=== PATIENT | female | born 2000 | race Caucasian/White ===

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

== ENCOUNTER → 2018-03-14 17:37 | Outpatient (CLI) | payer OTHER, SELFPAY ==
[2018-03-14 17:39] LABS: Adenovirus,PCR Not Detected (NotDetected); Bordetella Pertussis Not Detected (NotDetected); Chlamydophila Pneumoniae, PCR Not Detected (NotDetected); Coronavirus 229E Not Detected (NotDetected); Coronavirus NL63 Not Detected (NotDetected); Coronavirus OC43 Not Detected (NotDetected); Coronovirus HKU1,PCR Not Detected (NotDetected); Human Metapneumovirus Not Detected (NotDetected); Influenza A, PCR Not Detected (NotDetected); Influenza AH1, 2009 Not Detected (NotDetected); Influenza AH1, PCR Not Detected (NotDetected); Influenza AH3,PCR Not Detected (NotDetected); Influenza B, PCR Not Detected (NotDetected); Mycoplasma Pneumoniae, PCR Not Detected (NotDetected); Parainfluenza 1, PCR Not Detected (NotDetected); Parainfluenza 2, PCR Not Detected (NotDetected); Parainfluenza 3, PCR Not Detected (NotDetected); Parainfluenza 4, PCR Not Detected (NotDetected); Rhinovirus/Enterovirus Not Detected (NotDetected)
[2018-03-14 19:08] LABS: Respiratory Syncytial Virus Detected (NotDetected)
== END ==
PROVIDERS: Visit Provider Physician Assistant
DX: R05 Cough (principal); R09.89 Other specified symptoms and signs involving the circulatory and respiratory systems
CPT/HCPCS: 87486; 87581; 87633; 87798

== ENCOUNTER 2019-09-18 12:36 | Emergency (ER) | payer OTHER, SELFPAY ==
[2019-09-18 12:41] VITALS: BP 124/81; PULSE 66; RESP 16; TEMP 36.6; O2SAT 97; BMI 27.2
--- NOTE | 2019-09-18 12:46 | XR_ITS ---
PROCEDURE: XR FOOT LT MIN 3V CLINICAL INDICATION: injury Posttraumatic pain COMPARISON: No exams were available for comparison FINDINGS: No fracture or dislocation. No lytic or blastic change. There is normal mineralization. The joint spaces are well-preserved. No significant degenerative/arthritic changes. No erosive changes evident. Other findings:None. IMPRESSION: No acute findings. Dictated by: Armando Orosco MD 09/18/2019 13:09 Electronically signed by Armando Orosco MD in [place] 09/18/2019 13:11
--- NOTE | 2019-09-18 12:55 | [facility].EDGENADL ---
ED Disposition Clinical Impression: Wound infection Laceration of left foot Qualifiers: Encounter type: initial encounter Qualified Code(s): S91.312A - Laceration without foreign body, left foot, initial encounter Disposition: Home, Self-Care Condition on Discharge: Good Instructions: DI for Wound Infection Additional Instructions: Clean the wound between your toes daily with soap and water, applied Neosporin ointment and bandage/sergey tape. Elevate your foot as often as possible. Crutches as needed. Keflex as prescribed. Ibuprofen for pain. Return to the emergency room if increasing pain, swelling, redness, red streaks, fever, or pus drainage. Prescriptions: cephALEXin [Keflex 500mg Cap] 500 mg PO QID #40 cap Transmission Status: Received by [facility] Referrals: Maci Vargas APRN [Primary Care Provider] - - Critical Care Critical Care Time: No Attestation: On 09/18/19, the high probability of a clinically significant, sudden or life threatening deterioration of the following system(s) required my full and direct attention, intervention and personal management. The time I documented below is in addition to time spent performing reported procedures but includes the following listed in this critical care notation. Medical Decision Making - [place] Inquiry Pt receiving controlled substance: No Vital Signs: 09/18/19 12:41 Temperature 97.8 F Temperature Source Oral Pulse Rate [Left Radial] 66 Respiratory Rate 16 Blood Pressure [Right Arm] 124/81 Blood Pressure Mean [Right Arm] 95 Blood Pressure Position [Right Arm] Sitting 02 Sat by Pulse Oximetry 97 Oxygen Delivery Method Room Air Orders (Tests/Meds): ED MEDICATIONS Discontinued Medications Generic Name Dose Route Start Last Admin Trade Name Devan PRN Reason Stop Dose Admin Ceftriaxone Sodium 1 gm 09/18/19 13:03 09/18/19 13:15 Rocephin 1gm Vial IM 09/18/19 13:04 1 gm ONCE ONE Administration Protocol Lidocaine HCl 0 ml 09/18/19 13:03 09/18/19 13:16 Lidocaine 1% 10ml Mdv IM 09/18/19 13:04 2 ml ONCE ONE Administration - Radiology Data #1 Image(s): Foot/Toes Image Reviewed: Yes I reviewed the patient's radiology image, Yes I have reviewed radiologist's interpretation Preliminary Findings: Normal/NAD General Adult HPI - General Chief complaint: PAIN Stated complaint: AO 6/13 fell injury to left foot Time Seen by Provider: 09/18/19 12:55 Mode of Arrival: Ambulatory Limitations: No Limitations Description of Symptoms (Recalled from ER Triage Doc. by RN): to ed per pvt car with c/o lateral lt foot pain pt states wednesday stepped on a rock I think I may have broke it pt states limitied weight bearing lt . - History of Present Illness HPI narrative: States that on Wednesday, 2 days ago, she was getting out of a kayak when she hit her foot on a rock which struck her between her fourth and fifth toes. She said initially it did not hurt but yesterday began getting swollen and painful. No fever. She says she had no bleeding at the time, but has a skin injury between her toes. Last tetanus immunization was in June. No fever. - Related Data Previous Rx's Medication Instructions Recorded Fluticasone Propionate [Flonase 1 spr NS DAILY #1 bottle 06/05/19 50mcg nasal spray 16gm] cephALEXin [Keflex 500mg Cap] 500 mg PO QID #40 cap 09/18/19 Allergies Allergy/AdvReac Type Severity Reaction Status Date / Time No Known Allergies Allergy Verified 01/05/18 15:09 [facility] History - Hepatitis A Screen Drug use history?: No High risk sexual behaviors?: No History of sexually transmitted infection?: No Currently employed?: No Childcare worker?: No Do you have indoor plumbing?: Yes Do you have electricity?: Yes Attestation statement:: This patient has been screened for Hepatitis A risk factors. I have reviewed the patient's past medical history: Yes Medical History: Denies::
[2019-09-18 13:28] VITALS: BP 110/74; PULSE 68; RESP 16; TEMP 36.6; O2SAT 98
--- NOTE | 2019-09-18 13:29 | PC.NURSE ---
lt foot cleaned and sergey taped 4th and 5th toes
== END 2019-09-18 13:30 | disposition home or self-care (01) ==
PROVIDERS: Emergency Provider Emergency Medicine; PCP Nurse Practitioner Family
DX: S91.312A Laceration without foreign body, left foot, initial encounter (principal); W22.8XXA Striking against or struck by other objects, initial encounter; Y92.89 Other specified places as the place of occurrence of the external cause
CPT/HCPCS: 73630; 96372; 99282

== ENCOUNTER → 2021-01-06 12:50 | Outpatient (CLI) | payer OTHER, SELFPAY | PROVIDERS: PCP Nurse Practitioner Family; Visit Provider Nurse Practitioner | DX: Z20.822 Contact with and (suspected) exposure to COVID-19 (principal); U07.1 COVID-19 | CPT/HCPCS: C9803; U0003; U0005 ==

== ENCOUNTER 2021-01-30 14:44 | Emergency (ER) | payer OTHER, SELFPAY ==
[2021-01-30 14:44] VITALS: BP 122/59; PULSE 89; RESP 14; TEMP 36.8; O2SAT 99; BMI 28.0
[2021-01-30 15:03] VITALS: BP 122/59; PULSE 88; O2SAT 98
[2021-01-30 15:30] VITALS: BP 109/69; PULSE 88; O2SAT 97
[2021-01-30 16:00] VITALS: BP 107/69; PULSE 85; RESP 18; O2SAT 100
[2021-01-30 16:30] VITALS: BP 112/74; PULSE 77; RESP 18; O2SAT 100
--- NOTE | 2021-01-30 17:01 | HMH.EDGENADL ---
ED Disposition Clinical Impression: Rash Disposition: Home, Self-Care Condition on Discharge: Good Instructions: DI for Skin Abscess Additional Instructions: Steroids as directed. Follow-up PCP on Wednesday. Benadryl as needed. Do not drive while taking Benadryl. Return to emergency department shortness of breath, tight feeling in her chest, nausea/vomit/diarrhea. Prescriptions: predniSONE [Deltasone 20mg tablet] 20 mg PO DAILY 30 Days #15 tab Transmission Status: Received by [facility] Referrals: Maci Vargas APRN [Primary Care Provider] - 02/03/21 (Call for an appointment) Time of Disposition: 17:05 - Critical Care Critical Care Time: No Attestation: On 01/30/21, the high probability of a clinically significant, sudden or life threatening deterioration of the following system(s) required my full and direct attention, intervention and personal management. The time I documented below is in addition to time spent performing reported procedures but includes the following listed in this critical care notation. Medical Decision Making - Medical Records Medical records reviewed: Yes: I reviewed the patient's medical records. - [place] Inquiry Pt receiving controlled substance: No Vital Signs: 01/30/21 14:44 01/30/21 15:03 01/30/21 15:30 Temperature 98.2 F Temperature Source Oral Pulse Rate 88 88 Pulse Rate [Right Radial] 89 Respiratory Rate 14 Blood Pressure 122/59 L 109/69 L Blood Pressure [Right Arm] 122/59 L Blood Pressure Mean 84 82 Blood Pressure Mean [Right Arm] 80 Blood Pressure Source [Right Arm] Automatic Cuff Blood Pressure Position [Right Arm] Sitting 02 Sat by Pulse Oximetry 99 98 97 Oxygen Delivery Method Room Air 01/30/21 16:00 01/30/21 16:30 Temperature Temperature Source Pulse Rate 85 77 Pulse Rate [Right Radial] Respiratory Rate 18 18 Blood Pressure 107/69 L 112/74 Blood Pressure [Right Arm] Blood Pressure Mean 78 86 Blood Pressure Mean [Right Arm] Blood Pressure Source [Right Arm] Blood Pressure Position [Right Arm] 02 Sat by Pulse Oximetry 100 100 Oxygen Delivery Method Orders (Tests/Meds): ED MEDICATIONS Discontinued Medications Generic Name Dose Route Start Last Admin Trade Name Freq PRN Reason Stop Dose Admin Diphenhydramine HCl 50 mg 01/30/21 17:00 01/30/21 17:11 Diphenhydramine 50mg Capsule PO 01/30/21 17:01 50 mg ONCE ONE Administration Medical Decision Narrative: 20yo F evaluated for rash. Patient no acute distress on initial evaluation. Vital signs are normal. Patient received steroid injection at PCPs office prior to being sent here. Lungs are clear to auscultate bilaterally. Will prescribe the patient a burst of steroids and give her Benadryl prior to discharge. Patient encouraged to take medication as directed. Informed she can take Benadryl at home, just to be careful with attempting to drive 8 hours following medication. Patient to follow-up with PCP on Wednesday. Sounds like the patient needs allergy testing as she has had 2 eruptions in the past 2 months. General Adult HPI - General Chief complaint: Skin/Abscess/Foreign Body Stated complaint: whezzing, rash Time Seen by Provider: 01/30/21 17:01 Mode of Arrival: Ambulatory Limitations: No Limitations Description of Symptoms (Recalled from ER Triage Doc. by RN): Pt presents to ED with rash on left arm, bilateral legs, back, and neck. Pt c/o itching. Pt states that the rash appeared last night. Reports hx of it previously in the past. - History of Present Illness HPI narrative: 20yo F presents the emergency department from her PCPs office secondary to concern for rash. Patient developed a rash yesterday. Her only new intervention was a Nexplanon placed 2 days ago. This is her third Nexplanon. She denies any previous rash with other Nexplanon use. Patient denies any new lotion, soap, detergent, perfume, body wash. She states she
[2021-01-30 17:43] VITALS: BP 111/75; PULSE 68; RESP 16; TEMP 36.7; O2SAT 100
== END 2021-01-30 17:47 | disposition home or self-care (01) ==
PROVIDERS: Emergency Provider Family Medicine; PCP Nurse Practitioner Family
DX: R21 Rash and other nonspecific skin eruption (principal); R06.2 Wheezing
CPT/HCPCS: 99281